=== PATIENT | female | born 1995 | race Caucasian/White ===

== ENCOUNTER 2021-05-04 21:01 | Emergency (ER) | payer OTHER ==
[2021-05-04] MEDS ORDERED: ZOFRAN ODT 4 MG4 MG PO (23:47)
[2021-05-04] MEDS ORDERED: LODINE CAP 300300 MG PO (23:47)
[2021-05-04] MEDS ORDERED: BENZONATATE100 MG PO (23:47)
[2021-05-04] MEDS ORDERED: PROVENTIL HFA6.7 GM INH (23:47)
== END 2021-05-05 00:03 | disposition home or self-care (01) ==
LOC: ER1 21:01
DX: U07.1 COVID-19 (principal); J06.9 Acute upper respiratory infection, unspecified; Z88.1 Allergy status to other antibiotic agents; F17.200 Nicotine dependence, unspecified, uncomplicated
CPT/HCPCS: 0240U; 99283

== ENCOUNTER → 2021-11-05 | Outpatient (CLI) | payer OTHER ==
[~2021-11-05] MED LIST: BENZONATATE100 MG PO; LODINE CAP 300300 MG PO; PROVENTIL HFA6.7 GM INH; ZOFRAN ODT 4 MG4 MG PO
[2021-11-05 10:34] LABS: HEMOGLOBIN 12.5 gm/dl (12.3-15.3); RED BLOOD COUNT 4.14 M/UL (4.00-5.10); WHITE BLOOD COUNT 4.4 K/UL (4.5-11.0)
== END ==
LOC: OPSV2 08:00
PROVIDERS: Obstetrics & Gynecology
DX: Z01.812 Encounter for preprocedural laboratory examination (principal); R10.2 Pelvic and perineal pain
CPT/HCPCS: 81001; 85025

== ENCOUNTER → 2021-11-13 | Day surgery (SDC) | payer OTHER ==
[~2021-11-13] VITALS: Ht 170.2 cm; Wt 57.2 kg
[~2021-11-13] MED LIST changes: +COLACE 100MG C100 MG PO; +HYDROCODON-ACE1 EAC6 PO; +IBUPROFEN600 MG PO
== END | disposition home or self-care (01) ==
LOC: OR 07:30
DX: N83.209 Unspecified ovarian cyst, unspecified side (principal); N73.6 Female pelvic peritoneal adhesions (postinfective); N80.3 Endometriosis of pelvic peritoneum; F17.210 Nicotine dependence, cigarettes, uncomplicated; F41.9 Anxiety disorder, unspecified; Z88.1 Allergy status to other antibiotic agents; Z88.2 Allergy status to sulfonamides
CPT/HCPCS: 36415; 84703; J1100; J2001; J2250; J2310; J2405; J2704; J2710; J2795; J3010

== ENCOUNTER → 2021-12-30 | Outpatient (CLI) | payer OTHER | LOC: LAB 14:37 | DX: Z32.00 Encounter for pregnancy test, result unknown (principal) | CPT/HCPCS: 36415; 84702 ==